=== PATIENT | female | born 1990 | race Caucasian/White ===

== ENCOUNTER 2017-06-06 10:25 | Emergency (ER) | END 2017-06-06 12:25 | disposition home or self-care (01) ==

== ENCOUNTER 2017-11-21 18:11 | Outpatient (CLI) | END 2017-11-21 20:30 | disposition home or self-care (01) ==

== ENCOUNTER 2017-12-05 19:00 | Inpatient (IN) | END 2017-12-05 20:12 | disposition home or self-care (01) | DRG 782 ==

== ENCOUNTER 2017-12-09 13:30 | Inpatient (IN) | END 2017-12-14 14:00 | disposition home or self-care (01) | DRG 765 ==

== ENCOUNTER 2018-04-18 12:00 | Day surgery (SDC) | payer OTHER ==
[2018-04-18] VITALS (14 sets, daily range): BP systolic 103–124; BP diastolic 60–78; PULSE 16–84; RESP 13–21; Ht 175.3 cm; Wt 112.6 kg
[~2018-04-18] VITALS: Ht 175.3 cm; Wt 112.6 kg
[~2018-04-18 12:00] MED LIST: CEFAZOLIN 2 GM/50 ML (PMX) 50 ML IVPB ONE; INFLUENZA VIRUS VACCINE 0.5 ML (DISPENSING) IM* ONE; PNV11TAB PO; ROCURONIUM 50 MG INJ ONE; SEVOFLURANE 15 MIN ONE; SOD CHLORIDE 0.9% 1,000 ML IV SCH
[2018-04-18] MEDS ORDERED: BUPIVACAINE 0.25% (MPF) 30 ML INJ ONE (12:51)
--- NOTE | 2018-04-18 13:37 | PREAC ---
Date/Time of Note Date/Time of Note DATE: 04/18/18 TIME: 13:35 Anesthesia Eval and Record Evaluation Time Pre-Procedure Interview DATE: 04/18/18 TIME: 13:35 Age 28 Sex female NPO: 8 hrs Preoperative diagnosis Cholelithiasis Planned procedure LAP CHOLECYSECTOMY Past Medical History Past Medical History: Includes GI: Morbid obesity Surgery & Anesthesia Issues No known issue Meds Anticoagulation: No Beta Dafne within 24 hr: No Reason Beta Dafne not given: Pt. not on B-Dafne Reported Medications [id number] ( 19) 1 Each Tablet, 1 TAB PO DAILY, TAB 12/05/17 Current Medications Sodium Chloride 1,000 ml @ 75 mls/hr [id number] IV ; Start 04/18/18 at 07:00 Meds reviewed: Yes Allergies Coded Allergies: No Known Allergy (Unverified , 06/06/17) Allergies Reviewed: Yes Labs/Studies Labs Reviewed: Reviewed by anesthesiologist test: Negative Studies: ECG Pre-procedure Exam Last vitals Vital Signs Date Temp Pulse Resp B/P (MAP) Pulse Ox O2 O2 Flow FiO2 Time Delivery Rate 04/18/18 97.2 84 18 124/78 96 Room Air 12:39 (93) Airway: Adequate mouth opening, Adequate thyromental dist Mallampati: Mallampati II Teeth: Normal Lung: Normal Heart: Normal ASA Physical Status ASA physical status: 2 Emergency: None Planned Anesthetic General/MAC: ETT Planned Pain Management Parenteral pain med Pre-operative Attestations Prior to commencing anesthesia and surgery, the patient was re-evaluated, there was verification of: *The patient's identity *The results of appropriate recent lab work and preoperative vital signs *The above evaluation not changing prior to induction *Anesthetic plan, risk benefits, alternative and complications discussed with patient/family; questions answered; patient/family understands, accepts and wishes to proceed. MAHENDRA MORRIS MD Apr 18, 2018 13:37
[2018-04-18] MEDS ORDERED: FENTAnyl 50 MCG/ML VIAL ONE (13:39)
[2018-04-18] MEDS ORDERED: MIDAZOLAM 1 MG/ML 2 ML INJ ONE (13:39)
[2018-04-18] MEDS ORDERED: ONDANSETRON 4 MG INJ ONE ×2 (14:15→14:31)
[2018-04-18] MEDS ORDERED: KETOROLAC 30 MG INJ ONE (14:16)
--- NOTE | 2018-04-18 14:18 | OPR ---
Date/Time of Note Date/Time of Note DATE: 04/18/18 TIME: 14:16 Operative Report Procedure Date: Apr 18, 2018 Preoperative Diagnosis symptomatic gallstones Postoperative Diagnosis same Operation/Procedure Performed laparoscopic cholecystectomy Surgeon see signature line Heat Plant Specialist Markel Garcia Anesthesia Type: general Estimated Blood Loss: 0 - 10 ml's Transfusion none Specimen gallbladder Grafts/Implants none Complications none Pt Condition Post Procedure: stable Indications This is a 28-year-old female with symptomatic gallstones. She requests surgical excision. Risks alternatives benefits and percent were discussed the patient. Patient expressed understanding and consents to the operation. Procedure Description Patient is taken to the OR and prepped and draped in usual sterile fashion. Surgical timeout was performed. IV antibiotics were given. Infraumbilical incision was made transversely with a 15 blade. Dissection with cautery was taken down to the fascia. The fascia was grasped with Kenny's and divided with curved Easley scissors. 0 Vicryl U stitch was placed into the fascia. Henriquez trocar was introduced. Pneumoperitoneum is established. Midepigastric 12 mm optical trochars placed under direct visualization. Right upper quadrant upper flank 5 mm optical trochars are placed under direct visualization. Upon initial inspection there are some adhesions to the gallbladder which are taken down bluntly. The gallbladder was grasped the fundus and retracted in a lateral cephalad direction. Hook cautery was used laterally to mobilize the gallbladder. [place] graspers were used to isolate and dissect out the cystic duct and cystic artery. The critical view was established. The cystic duct was divided with 3 clips proximally clipped distal and the division was performed with laparoscopic scissors. The cystic artery was divided with 3 clips proximal to distal and the division was performed laparoscopic scissors. The gallbladder was taken of the gallbladder bed with hook cautery. Good hemostasis was established in the surgical bed. The gallbladder was retrieved using Endo Catch bag. Minimal suction irrigation was used. Ports removed under direct visualization. 0 Vicryl U stitch was tied down. Skin was closed using skin fabio. Therapeutic subcutaneous local anesthesia was injected at the incision site. Dry dressings were applied. Amy VILLALPANDO Apr 18, 2018 14:18
[2018-04-18] MEDS ORDERED: GLYCOPYRROLATE 0.4 MG INJ ONE (14:21)
[2018-04-18] MEDS ORDERED: CEFAZOLIN 1 GM INJ ONE (14:21)
[2018-04-18] MEDS ORDERED: NEOSTIGMINE 3 MG/3 ML SYRINGE ONE (14:21)
[2018-04-18] MEDS ORDERED: LIDOCAINE 2% (SDV) 5 ML INJ ONE (14:21)
[2018-04-18] MEDS ORDERED: PROPOFOL 20 ML ONE (14:21)
[2018-04-18] MEDS ORDERED: ONDANSETRON 4 MG INJ IV PRN (14:30)
[2018-04-18] MEDS ORDERED: METOCLOPRAMIDE 10 MG INJ IV PRN (14:30)
[2018-04-18] MEDS ORDERED: HYDROmorphONE 1 MG/5 ML IV SYRINGE IV PRN (14:30)
[2018-04-18] MEDS ORDERED: MEPERIDINE 25 MG INJ IV PRN (14:30)
[2018-04-18] MEDS ORDERED: HYDROCODONE/APAP (5/325) TAB PO ONE (14:30)
[2018-04-18] MEDS ORDERED: FENTAnyl 50 MCG/ML VIAL IV PRN (14:30)
[2018-04-18] MEDS ORDERED: DIPHENHYDRAMINE 50 MG INJ IV PRN (14:30)
[2018-04-18] MEDS ORDERED: MEPERIDINE 25 MG INJ ONE (14:31)
[2018-04-18] MEDS ORDERED: HYDROmorphONE 1 MG/5 ML IV SYRINGE IV ONE (14:32)
--- NOTE | 2018-04-18 14:32 | PAC ---
Date/Time of Note Date/Time of Note DATE: 04/18/18 TIME: 14:31 Post-Anesthesia Notes Post-Anesthesia Note Last documented vital signs Vital Signs Date Temp Pulse Resp B/P (MAP) Pulse Ox O2 O2 Flow FiO2 Time Delivery Rate 04/18/18 98.0 14:30 04/18/18 84 18 124/78 96 Room Air 12:39 (93) Activity: WNL Respiratory function: WNL Cardiovascular function: WNL Mental status: Baseline Pain reasonably controlled: Yes Hydration appropriate: Yes Nausea/Vomiting absent: Yes Comments BP:117/65, pulse:78, spo2:100%, T:98,8 MAHENDRA MORRIS MD Apr 18, 2018 14:32
[2018-04-18] MEDS: HYDROmorphONE 1 MG/5 ML IV SYRINGE IV PRN ×2 (14:36→14:56)
== END 2018-04-18 16:32 | disposition home or self-care (01) ==
LOC: SDS 12:00
PROVIDERS: ATTEND Surgery
DX: K80.80 Other cholelithiasis without obstruction (principal)
CPT/HCPCS: 47562; J0690; J1170; J1885; J2175; J2250; J2405; J2710; J3010; Z7610; 88304